=== PATIENT | male | born 1950 | race Caucasian/White ===

== ENCOUNTER 2024-08-05 09:14 | Outpatient (CLI) | payer MEDICARE, OTHER | END 2024-08-05 09:15 | disposition home or self-care (01) | LOC: CSHWCC 09:14 | PROVIDERS: ATTEND Nurse Practitioner Family | DX: T81.31XD Disruption of external operation (surgical) wound, not elsewhere classified, subsequent encounter (principal); I25.10 Atherosclerotic heart disease of native coronary artery without angina pectoris; I73.9 Peripheral vascular disease, unspecified | CPT/HCPCS: 11042; G0463; 99213 ==

== ENCOUNTER 2024-08-12 11:44 | Outpatient (CLI) | payer MEDICARE, OTHER | END 2024-08-12 11:45 | disposition home or self-care (01) | LOC: CSHWCC 11:44 | PROVIDERS: ATTEND Nurse Practitioner Family | DX: T81.31XD Disruption of external operation (surgical) wound, not elsewhere classified, subsequent encounter (principal); I73.9 Peripheral vascular disease, unspecified; I25.10 Atherosclerotic heart disease of native coronary artery without angina pectoris | CPT/HCPCS: 11042 ==

== ENCOUNTER 2024-08-26 13:12 | Outpatient (CLI) | payer MEDICARE, OTHER | END 2024-08-26 13:13 | disposition home or self-care (01) | LOC: CSHWCC 13:12 | PROVIDERS: ATTEND Nurse Practitioner Family | DX: T81.31XD Disruption of external operation (surgical) wound, not elsewhere classified, subsequent encounter (principal); I25.10 Atherosclerotic heart disease of native coronary artery without angina pectoris; I73.9 Peripheral vascular disease, unspecified | CPT/HCPCS: 97597 ==